=== PATIENT | female | born 1930 | race Caucasian/White ===

== ENCOUNTER 2016-09-05 13:38 | Inpatient (IN) | payer OTHER, MEDICARE ==
[~2016-09-05] VITALS: Ht 157.5 cm; Wt 68.3 kg
[~2016-09-05 13:38] MED LIST: ATENOLOL100 M1 PO; Bactrim,Septra DS 80 PO; CRESTOR5 MG PO; GLUCOPHAGE500 MG PO; Hyzaar 100-25 PO; LUMIGAN2.5 M1 OP; Levothroid,Synthroid PO; NORVASC5 MG PO; Questran PO; Tenormin PO; ZANTAC150 MG PO; ZOCOR20 MG PO
[2016-09-05 14:13] LABS: HEMATOCRIT 44.6 % (36.0-46.0); MCHC 34.3 G/DL (30.0-36.0); MCV 84.6 FL (83-99); MEAN PLAT.VOLUME 9.6 uM^3 (9.5-12.4); PLATELET COUNT 266 K/uL (156-360); RBC DIS.WIDTH-CV 12.2 % (11.8-14.6); RBC DIS.WIDTH-SD 36.8 % (39-53); RED BLOOD COUNT 5.27 M/uL (3.80-5.20); WHITE BLOOD COUNT 8.9 K/uL (4.1-10.2)
[2016-09-05 14:24] LABS: CHLORIDE 103 mEq/L (99-109); POTASSIUM 4.5 mEq/L (3.7-5.4); SODIUM 136 mEq/L (136-147)
[2016-09-05 14:26] LABS: GLUCOSE 101 mg/dL (70-99)
[2016-09-05 14:27] LABS: ANION GAP 13 MEQ/L (2-14)
[2016-09-05 14:30] LABS: GFR ESTIMATE (CALCULATED) > 59 mL/min/
[2016-09-05 14:31] LABS: UREA NITROGEN (BUN) 16 mg/dL (9-23)
[2016-09-05 14:35] LABS: TROP-I INTERPRETATION NEGATIVE; TROPONIN-I < 0.01 ng/mL (0.0-0.30)
[2016-09-05] MEDS ORDERED: SYNTHROID50 MCG PO (16:48)
[2016-09-05] MEDS ORDERED: LOSARTAN POTAS100 MG PO (16:49)
[2016-09-05] MEDS ORDERED: GLIMEPIRIDE4 MG PO (16:49)
[2016-09-05] MEDS ORDERED: TENORMIN100 MG PO (16:49)
[2016-09-05] MEDS ORDERED: PROMETHAZINE-C120 ML PO (16:49)
[2016-09-05] MEDS ORDERED: PRAVASTATIN SOD40 MG PO (16:49)
[2016-09-05] MEDS ORDERED: TRUSOPT5 ML LEFT EYE (16:50)
[2016-09-05] MEDS ORDERED: [UNRECOGNIZED DRUG - OTHER] LEFT EYE (16:51)
[2016-09-05] MEDS ORDERED: COSOPT EYE DROPS5 ML LEFT EYE (16:52)
[2016-09-05] MEDS ORDERED: TYLENOL EXTRA500 MG PO (16:52)
[2016-09-05 17:39] LABS: TROP-I INTERPRETATION NEGATIVE; TROPONIN-I < 0.01 ng/mL (0.0-0.30)
[2016-09-05 17:48] LABS: HDL CHOLESTEROL 51 MG/DL (Desirable>=50); LDL CHOLESTEROL 46 mg/dL (Desirable<100); NON-HDL CHOLESTEROL 69 mg/dL (Desirable<160); TOTAL CHOLESTEROL 120 mg/dL (Desirable<200); TRIGLYCERIDES 115 MG/DL (Normal: <150)
[2016-09-05 19:44] VITALS: BP 150/72
[2016-09-05 19:49] LABS: Estimated Average Glucose 157 mg/dL (70-123); HEMOGLOBIN A1c (GLYCOHEMOGLOB) 7.1 % HGB (Below 5.7)
[2016-09-05 22:45] VITALS: BP 142/71
[2016-09-06 03:40] VITALS: BP 166/89
[2016-09-06 07:05] LABS: HEMATOCRIT 43.1 % (36.0-46.0); MCH 29.5 PG (29.0-34.0); MCHC 34.8 G/DL (30.0-36.0); MCV 84.7 FL (83-99); MEAN PLAT.VOLUME 9.9 uM^3 (9.5-12.4); PLATELET COUNT 233 K/uL (156-360); RBC DIS.WIDTH-CV 12.4 % (11.8-14.6); RED BLOOD COUNT 5.09 M/uL (3.80-5.20); WHITE BLOOD COUNT 7.9 K/uL (4.1-10.2)
[2016-09-06 07:34] LABS: ALKALINE PHOSPHATASE 59 IU/L (3-129); ANION GAP 14 MEQ/L (2-14); CHLORIDE 100 MEQ/L (99-109); GFR ESTIMATE (CALCULATED) > 59 mL/min/; GLUCOSE 140 mg/dL (70-99); POTASSIUM 4.1 MEQ/L (3.7-5.4); SAMPLE HEMOLYSIS CHECK 0; SAMPLE ICTERIC CHECK 0; SAMPLE LIPEMIA CHECK 0; SODIUM 135 MEQ/L (136-147); TOTAL BILIRUBIN 1.6 MG/DL (0.0-1.0); UREA NITROGEN (BUN) 16 mg/dL (9-23)
[2016-09-06 07:55] VITALS: BP 144/77
[2016-09-06 11:55] VITALS: BP 127/71
[2016-09-06] MEDS ORDERED: ZIOPTAN 0.00151 EACH LEFT EYE (15:37)
[2016-09-06 16:03] VITALS: BP 175/89
[2016-09-06 19:32] VITALS: BP 154/82
[2016-09-07 00:03] VITALS: BP 156/72
[2016-09-07 03:42] VITALS: BP 166/92
[2016-09-07 08:36] VITALS: BP 157/75
[2016-09-07 11:13] VITALS: BP 152/73
[2016-09-07 15:29] VITALS: BP 143/67
[2016-09-07 20:00] VITALS: BP 171/81
[2016-09-08] VITALS (7 sets, daily range): BP systolic 110–152; BP diastolic 65–78
[2016-09-08 00:49] LABS: MCH 29.4 PG (29.0-34.0); MCHC 36.4 G/DL (30.0-36.0); MCV 80.9 FL (83-99); MEAN PLAT.VOLUME 9.5 uM^3 (9.5-12.4); PLATELET COUNT 292 K/uL (156-360); RBC DIS.WIDTH-SD 34.9 % (39-53); RED BLOOD COUNT 5.44 M/uL (3.80-5.20); WHITE BLOOD COUNT 10.5 K/uL (4.1-10.2)
[2016-09-08 00:50] LABS: CHLORIDE 99 mEq/L (99-109); POTASSIUM 3.8 mEq/L (3.7-5.4); SODIUM 130 mEq/L (136-147)
[2016-09-08 00:52] LABS: GLUCOSE 179 mg/dL (70-99)
[2016-09-08 00:53] LABS: ANION GAP 11 MEQ/L (2-14)
[2016-09-08 00:56] LABS: GFR ESTIMATE (CALCULATED) > 59 mL/min/
[2016-09-08 00:57] LABS: UREA NITROGEN (BUN) 14 mg/dL (9-23)
[2016-09-09 06:11] LABS: HEMATOCRIT 46.3 % (36.0-46.0); MCH 29.8 PG (29.0-34.0); MCHC 35.4 G/DL (30.0-36.0); MCV 84.2 FL (83-99); MEAN PLAT.VOLUME 9.9 uM^3 (9.5-12.4); PLATELET COUNT 268 K/uL (156-360); RBC DIS.WIDTH-CV 12.2 % (11.8-14.6); RBC DIS.WIDTH-SD 37.2 % (39-53); WHITE BLOOD COUNT 9.7 K/uL (4.1-10.2)
[2016-09-09 07:31] VITALS: BP 149/72
[2016-09-09 09:38] LABS: ANION GAP 13 MEQ/L (2-14); CHLORIDE 101 MEQ/L (99-109); GFR ESTIMATE (CALCULATED) > 59 mL/min/; GLUCOSE 175 mg/dL (70-99); POTASSIUM 4.1 MEQ/L (3.7-5.4); SAMPLE HEMOLYSIS CHECK 0; SAMPLE ICTERIC CHECK 0; SAMPLE LIPEMIA CHECK 0; SODIUM 135 MEQ/L (136-147); UREA NITROGEN (BUN) 17 mg/dL (9-23)
[2016-09-09 11:16] VITALS: BP 120/65
[2016-09-09] MEDS ORDERED: CLOPIDOGREL75 MG PO (13:32)
[2016-09-09] MEDS ORDERED: ASPIR-LOW81 MG PO (13:32)
[2016-09-09] MEDS ORDERED: AMLODIPINE BES2.5 MG PO (13:32)
[2016-09-09 16:28] VITALS: BP 107/64
== END 2016-09-09 17:01 | DRG 64 ==
LOC: EME 13:38 → EDOF 16:16 → 5WEST 19:19 → 5SOUTH 21:18 → 5WEST 21:18 → 5SOUTH 22:36
PROVIDERS: Emergency Medicine; Family Medicine; Hospitalist
DX: I63.9 Cerebral infarction, unspecified (principal); G93.40 Encephalopathy, unspecified; E22.2 Syndrome of inappropriate secretion of antidiuretic hormone; E11.9 Type 2 diabetes mellitus without complications; I16.0 Hypertensive urgency; I10 Essential (primary) hypertension; E78.5 Hyperlipidemia, unspecified; E78.00 Pure hypercholesterolemia, unspecified; Z79.84 Long term (current) use of oral hypoglycemic drugs; Z85.820 Personal history of malignant melanoma of skin
CPT/HCPCS: 70450; 70496; 70498; 70544; 70549; 70551; 71020; 80048; 80053; 80061; 82948; 83036; 84484; 85027; 92523 GN; 93005; 93306; 93880; 97530 GP; 99281; 99285; J0360; J1650; J1815; J2060; J2405

== ENCOUNTER 2016-09-30 23:31 | Emergency (ER) | payer OTHER, MEDICARE ==
[~2016-09-30] VITALS: Ht 160 cm; Wt 68.2 kg
[~2016-09-30 23:31] MED LIST changes: +AMLODIPINE BES2.5 MG PO; +ASPIR-LOW81 MG PO; +CLOPIDOGREL75 MG PO; +COSOPT EYE DROPS5 ML LEFT EYE; +GLIMEPIRIDE4 MG PO; +LOSARTAN POTAS100 MG PO; +PRAVASTATIN SOD40 MG PO; +PROMETHAZINE-C120 ML PO; +SYNTHROID50 MCG PO; +TENORMIN100 MG PO; +TRUSOPT5 ML LEFT EYE; +TYLENOL EXTRA500 MG PO; +ZIOPTAN 0.00151 EACH LEFT EYE; +[UNRECOGNIZED DRUG - OTHER] LEFT EYE
[2016-10-01 00:40] LABS: CHLORIDE 103 mEq/L (99-109); POTASSIUM 5.3 mEq/L (3.7-5.4); SODIUM 133 mEq/L (136-147)
[2016-10-01 00:42] LABS: GLUCOSE 201 mg/dL (70-99)
[2016-10-01 00:44] LABS: ANION GAP 9 MEQ/L (2-14); TOTAL BILIRUBIN 0.7 mg/dL (0.0-1.0)
[2016-10-01 00:44] LABS: ADD MIUA? YES; BILIRUBIN NEGATIVE; BLOOD LARGE; GLUCOSE (STRIP) NEGATIVE; KETONES 5; LEUKOCYTES MODERATE; NITRITE NEGATIVE; PROTEIN (STRIP) 100; SPECIFIC GRAVITY 1.017 (1.000-1.030); UROBILINOGEN 0.2 MG/DL (0.2-1.0)
[2016-10-01 00:46] LABS: COLOR YELLOW ((YELLOW))
[2016-10-01 00:46] LABS: ALKALINE PHOSPHATASE 73 IU/L (3-129); GFR ESTIMATE (CALCULATED) > 59 mL/min/
[2016-10-01 00:47] LABS: UREA NITROGEN (BUN) 31 mg/dL (9-23)
[2016-10-01 00:49] LABS: LIPASE 78 U/L (1.0-51.0)
[2016-10-01 00:52] LABS: HEMATOCRIT 40.1 % (36.0-46.0); MCH 29.6 PG (29.0-34.0); MCHC 35.9 G/DL (30.0-36.0); MCV 82.5 FL (83-99); MEAN PLAT.VOLUME 8.4 uM^3 (9.5-12.4); PLATELET COUNT 310 K/uL (156-360); RBC DIS.WIDTH-CV 12.1 % (11.8-14.6); RBC DIS.WIDTH-SD 35.9 % (39-53); RED BLOOD COUNT 4.86 M/uL (3.80-5.20); WHITE BLOOD COUNT 7.1 K/uL (4.1-10.2)
[2016-10-01 00:58] LABS: BACTERIA NONE SEEN /HPF; EPITHELIAL CELLS NONE SEEN /HPF; MUCUS NONE SEEN /LPF; UCUL ADDED? NO; WHITE BLOOD CELLS 15-20 /HPF (0-5); WHITE BLOOD CELLS CLUMP FEW /HPF (0-5)
[2016-10-01 01:20] LABS: TROP-I INTERPRETATION NEGATIVE; TROPONIN-I < 0.01 ng/mL (0.0-0.30)
[2016-10-01] MEDS ORDERED: CIPRO500 MG PO (03:06)
[2016-10-01 04:33] VITALS: BP 132/70
== END 2016-10-01 04:44 ==
LOC: EME → EDBD 23:31 → EME 23:31
PROVIDERS: Emergency Medicine
DX: N30.01 Acute cystitis with hematuria (principal); E86.0 Dehydration; E87.1 Hypo-osmolality and hyponatremia; I69.351 Hemiplegia and hemiparesis following cerebral infarction affecting right dominant side; E78.5 Hyperlipidemia, unspecified; W06.XXXA Fall from bed, initial encounter
CPT/HCPCS: 70450; 71010; 72170; 72192; 80053; 81003; 83690; 84484; 85027; 87086; 93005; 99281; 99285; J7030

== ENCOUNTER 2017-02-17 11:55 | Inpatient (IN) | payer OTHER, MEDICARE, BC ==
[~2017-02-17] VITALS: Ht 157.5 cm; Wt 61.8 kg
[~2017-02-17 11:55] MED LIST changes: +CIPRO500 MG PO
[2017-02-17 13:53] LABS: ADD MIUA? YES; BILIRUBIN NEGATIVE; BLOOD SMALL; COLOR YELLOW ((YELLOW)); GLUCOSE (STRIP) NEGATIVE; KETONES NEGATIVE; LEUKOCYTES LARGE; NITRITE POSITIVE; PROTEIN (STRIP) 30; SPECIFIC GRAVITY 1.014 (1.000-1.030); UROBILINOGEN 0.2 MG/DL (0.2-1.0)
[2017-02-17 14:22] LABS: BACTERIA 3+ /HPF; CASTS NONE SEEN /LPF; CRYSTALS NONE SEEN; EPITHELIAL CELLS RARE /HPF; MUCUS NONE SEEN /LPF; RED BLOOD CELLS 0-5 /HPF (0-5); WHITE BLOOD CELLS 30-40 /HPF (0-5)
[2017-02-17 15:10] LABS: CHLORIDE 107 mEq/L (99-109); POTASSIUM 4.2 mEq/L (3.7-5.4); SODIUM 137 mEq/L (136-147)
[2017-02-17 15:14] LABS: ANION GAP 10 MEQ/L (2-14)
[2017-02-17 15:15] LABS: TOTAL BILIRUBIN 0.6 mg/dL (0.0-1.0)
[2017-02-17 15:16] LABS: ALKALINE PHOSPHATASE 76 IU/L (3-129); GFR ESTIMATE (CALCULATED) > 59 mL/min/; WHITE BLOOD COUNT ND K/uL (4.1-10.2)
[2017-02-17 15:17] LABS: RED BLOOD COUNT ND M/uL (3.80-5.20); UREA NITROGEN (BUN) 17 mg/dL (9-23)
[2017-02-17 15:18] LABS: HEMATOCRIT ND % (36.0-46.0); MCH ND PG (29.0-34.0); MCHC ND G/DL (30.0-36.0); MCV ND FL (83-99)
[2017-02-17 15:19] LABS: IMM.PLATELET FRACTION ND (1-7); MEAN PLAT.VOLUME ND uM^3 (9.5-12.4); PLATELET COUNT ND K/uL (156-360); RBC DIS.WIDTH-CV ND % (11.8-14.6); RBC DIS.WIDTH-SD ND % (39-53)
[2017-02-17 15:20] LABS: EOSINOPHIL (%) ND % (0-5); LIPASE 3 U/L (1.0-51.0); MONOCYTE (%) ND % (3-12); NEUTROPHIL (%) ND % (45-76)
[2017-02-17 15:21] LABS: IMMATURE GRANULOCYTE (%) ND % (0.0-0.7); LYMPHOCYTE COUNT ND K/uL (1.0-2.8); MONOCYTE COUNT ND K/uL (0-0.8); NEUTROPHIL COUNT ND K/uL (1.8-6.4)
[2017-02-17 15:22] LABS: BASOPHIL COUNT ND K/uL (0-0.1); EOSINOPHIL COUNT ND K/uL (0-0.3); IMMATURE GRANULOCYTE COUNT ND K/uL; NRBC (%) ND /100 WBC (0-0); NRBC COUNT ND K/uL (0-0)
[2017-02-17 15:23] LABS: ACANTHOCYTES ND; ANISOCYTOSIS ND; ATYPICAL LYMPHOCYTE ND %; BAND NEUTROPHILS ND % (0-8.0); BASOPHILS ND %; BURR CELLS ND; EOSINOPHILS ND % (0-5.0); HYPOCHROMASIA ND; LYMPHOCYTES ND % (15.0-45.0); MACROCYTES ND; METAMYELOCYTES ND %; MICROCYTOSIS ND; MYELOCYTES ND %; NUCLEATED RBC'S ND; OVALOCYTES ND; PLATELET CLUMPS ND; POIKILOCYTOSIS ND; POLYCHROMASIA ND; ROULEAUX ND; SCHISTOCYTES ND; SEG.NEUTROPHILS ND % (46.0-76.0); SICKLE CELLS ND; SPHEROCYTES ND; TARGET CELLS ND; TOTAL CELLS COUNTED ND; TOX.VACUOLIZATION ND; TOXIC GRANULATION ND
[2017-02-17 15:24] LABS: ABS NEUTROPHIL COUNT ND; EOSINOPHIL ABS CT ND; GIANT PLATELETS ND; HELMET CELLS ND; HYPERSEGMENTATION ND; INSTRUMENT ABS NEUTROPHIL CT ND K/uL; LARGE PLATELETS ND; MEGAKARYOCYTE ND; PLAT.SUFFICIENCY ND; SMUDGE CELLS ND; STOMATOCYTES ND; TEAR DROP CELLS ND
[2017-02-17 15:35] LABS: GLUCOSE 90 mg/dL (70-99)
[2017-02-17 16:24] LABS: EOSINOPHIL (%) 0.7 % (0-5); EOSINOPHIL COUNT 0.1 K/uL (0-0.3); HEMATOCRIT 35.1 % (36.0-46.0); IMMATURE GRANULOCYTE (%) 0.3 % (0.0-0.7); INSTRUMENT ABS NEUTROPHIL CT 8.5 K/uL; LYMPHOCYTE COUNT 1.6 K/uL (1.0-2.8); MCH 27.9 PG (29.0-34.0); MCHC 32.8 G/DL (30.0-36.0); MCV 85.2 FL (83-99); MEAN PLAT.VOLUME 9.4 uM^3 (9.5-12.4); MONOCYTE (%) 11.6 % (3-12); MONOCYTE COUNT 1.4 K/uL (0-0.8); NEUTROPHIL COUNT 8.5 K/uL (1.8-6.4); PLATELET COUNT 217 K/uL (156-360); RED BLOOD COUNT 4.12 M/uL (3.80-5.20); WHITE BLOOD COUNT 11.7 K/uL (4.1-10.2)
[2017-02-17] MEDS ORDERED: NORVASC2.5 MG PO (17:49)
[2017-02-17] MEDS ORDERED: GLIMEPIRIDE2 MG PO (17:52)
[2017-02-17] MEDS ORDERED: IMODIUM A-D2 M2 PO (17:53)
[2017-02-17] MEDS ORDERED: LANTUS 10100 UNITS/ SC ×2 (17:54)
[2017-02-17] MEDS ORDERED: MELATONIN3 MG PO (17:55)
[2017-02-17] MEDS ORDERED: GABAPENTIN300 MG PO (17:56)
[2017-02-17] MEDS ORDERED: BUPROPION XL150 MG PO (17:58)
[2017-02-17] MEDS ORDERED: GABAPENTIN100 MG PO (18:00)
[2017-02-17] MEDS ORDERED: CLOTRIMAZOLE15 GM TP (18:00)
[2017-02-17] MEDS ORDERED: NOVOLOG 10100 UNITS/ SC (18:01)
[2017-02-17] MEDS ORDERED: K-DUR20 MEQ PO (18:01)
[2017-02-17] MEDS ORDERED: DICYCLOMINE HCL20 MG PO (18:02)
[2017-02-17] MEDS ORDERED: TYLENOL REGULA325 MG PO (18:02)
[2017-02-17] MEDS ORDERED: ALUM-MAG HYDRO360 ML PO (18:03)
[2017-02-17] MEDS ORDERED: PROMETHAZINE HC25 M1 PO (18:04)
[2017-02-17] MEDS ORDERED: TRAMADOL HCL50 MG PO (18:04)
[2017-02-17 20:13] VITALS: BP 103/61
[2017-02-18 00:02] VITALS: BP 125/65
[2017-02-18 00:42] LABS: POINT-OF-CARE METER ID UU14188625
[2017-02-18 03:22] VITALS: BP 124/57
[2017-02-18 06:06] LABS: HEMATOCRIT 36.1 % (36.0-46.0); MCV 84.9 FL (83-99); MEAN PLAT.VOLUME 9.1 uM^3 (9.5-12.4); PLATELET COUNT 208 K/uL (156-360); RBC DIS.WIDTH-CV 11.9 % (11.8-14.6); RBC DIS.WIDTH-SD 36.8 % (39-53); RED BLOOD COUNT 4.25 M/uL (3.80-5.20); WHITE BLOOD COUNT 8.5 K/uL (4.1-10.2)
[2017-02-18 06:24] LABS: ANION GAP 11 MEQ/L (2-14); CHLORIDE 104 MEQ/L (99-109); GFR ESTIMATE (CALCULATED) > 59 mL/min/; POTASSIUM 4.1 MEQ/L (3.7-5.4); SAMPLE HEMOLYSIS CHECK 0; SAMPLE ICTERIC CHECK 0; SAMPLE LIPEMIA CHECK 0; SODIUM 136 MEQ/L (136-147); UREA NITROGEN (BUN) 10 mg/dL (9-23)
[2017-02-18 06:26] LABS: GLUCOSE 140 mg/dL (70-99)
[2017-02-18 07:35] VITALS: BP 126/56
[2017-02-18 11:15] VITALS: BP 142/71
[2017-02-18 15:12] VITALS: BP 134/77
[2017-02-18 20:01] VITALS: BP 127/62
[2017-02-18 21:05] LABS: POINT-OF-CARE METER ID UU14188625
[2017-02-19 00:13] VITALS: BP 126/67
[2017-02-19 04:20] VITALS: BP 143/84
[2017-02-19 05:51] LABS: ANION GAP 11 MEQ/L (2-14); CHLORIDE 106 MEQ/L (99-109); POTASSIUM 3.4 MEQ/L (3.7-5.4); SAMPLE HEMOLYSIS CHECK 0; SAMPLE ICTERIC CHECK 0; SAMPLE LIPEMIA CHECK 0; SODIUM 138 MEQ/L (136-147); TOTAL BILIRUBIN 0.3 MG/DL (0.0-1.0)
[2017-02-19 05:56] LABS: ALKALINE PHOSPHATASE 67 IU/L (3-129); GFR ESTIMATE (CALCULATED) > 59 mL/min/; GLUCOSE 112 mg/dL (70-99); UREA NITROGEN (BUN) 5 mg/dL (9-23)
[2017-02-19 06:06] LABS: EOSINOPHIL (%) 3.5 % (0-5); EOSINOPHIL COUNT 0.2 K/uL (0-0.3); HEMATOCRIT 46.9 % (36.0-46.0); IMMATURE GRANULOCYTE (%) 0.4 % (0.0-0.7); INSTRUMENT ABS NEUTROPHIL CT 2.9 K/uL; LYMPHOCYTE COUNT 1.1 K/uL (1.0-2.8); MCH 28.1 PG (29.0-34.0); MCHC 34.5 G/DL (30.0-36.0); MCV 81.4 FL (83-99); MEAN PLAT.VOLUME 9.2 uM^3 (9.5-12.4); MONOCYTE (%) 17.6 % (3-12); MONOCYTE COUNT 0.9 K/uL (0-0.8); NEUTROPHIL (%) 56.2 % (45-76); NEUTROPHIL COUNT 2.9 K/uL (1.8-6.4); PLATELET COUNT 147 K/uL (156-360); RBC DIS.WIDTH-CV 11.7 % (11.8-14.6); RBC DIS.WIDTH-SD 34.7 % (39-53); RED BLOOD COUNT 5.76 M/uL (3.80-5.20); WHITE BLOOD COUNT 5.2 K/uL (4.1-10.2)
[2017-02-19 07:25] VITALS: BP 155/74
[2017-02-19 07:49] LABS: POINT-OF-CARE METER ID UU13113717
[2017-02-19 11:11] VITALS: BP 149/69
[2017-02-19 11:39] LABS: POINT-OF-CARE METER ID UU13113717
[2017-02-19 12:05] LABS: Estimated Average Glucose 160 mg/dL (70-123); HEMOGLOBIN A1c (GLYCOHEMOGLOB) 7.2 % HGB (Below 5.7)
[2017-02-19 15:07] VITALS: BP 110/79
[2017-02-19 16:09] LABS: POINT-OF-CARE METER ID UU13113717
[2017-02-19 19:28] VITALS: BP 135/69
[2017-02-19 21:05] LABS: POINT-OF-CARE METER ID UU13113717
[2017-02-20 00:12] VITALS: BP 150/80
[2017-02-20 03:51] VITALS: BP 146/70
[2017-02-20 07:31] VITALS: BP 139/87
[2017-02-20 11:22] VITALS: BP 133/83
[2017-02-20] MEDS ORDERED: KEFLEX500 MG PO (12:20)
[2017-02-20] MEDS ORDERED: ATENOLOL25 MG PO (12:24)
== END 2017-02-20 15:20 | DRG 689 ==
LOC: EME → EDBD 11:55 → EME 11:55 → 5SOUTH 18:15 → EDOF 18:15 → 5SOUTH 19:58
PROVIDERS: Hospitalist; Physician Assistant
DX: N10 Acute pyelonephritis (principal); B96.1 Klebsiella pneumoniae [K. pneumoniae] as the cause of diseases classified elsewhere; B96.20 Unspecified Escherichia coli [E. coli] as the cause of diseases classified elsewhere; G93.41 Metabolic encephalopathy; K52.9 Noninfective gastroenteritis and colitis, unspecified; E11.9 Type 2 diabetes mellitus without complications; K59.00 Constipation, unspecified; D64.9 Anemia, unspecified; I69.351 Hemiplegia and hemiparesis following cerebral infarction affecting right dominant side; I69.322 Dysarthria following cerebral infarction; L89.159 Pressure ulcer of sacral region, unspecified stage; I10 Essential (primary) hypertension; G43.909 Migraine, unspecified, not intractable, without status migrainosus; I25.10 Atherosclerotic heart disease of native coronary artery without angina pectoris; E78.5 Hyperlipidemia, unspecified; K21.9 Gastro-esophageal reflux disease without esophagitis; E03.9 Hypothyroidism, unspecified; F03.90 Unspecified dementia, unspecified severity, without behavioral disturbance, psychotic disturbance, mood disturbance, and anxiety; F32.9 Major depressive disorder, single episode, unspecified; Z79.4 Long term (current) use of insulin; Z79.82 Long term (current) use of aspirin; Z79.84 Long term (current) use of oral hypoglycemic drugs; Z80.0 Family history of malignant neoplasm of digestive organs; Z83.3 Family history of diabetes mellitus; Z85.820 Personal history of malignant melanoma of skin
CPT/HCPCS: 36415; 70450; 71260; 74177; 80048; 80053; 81003; 82272; 82948; 83036; 83605; 83690; 85025; 85025 91; 85027; 87040; 87077; 87086; 87186; 87493; 93971; J0696; J1644; J1815; J2405; J7030; J7050

== ENCOUNTER 2017-03-27 12:22 | Emergency (ER) | payer OTHER, MEDICARE ==
[~2017-03-27] VITALS: Ht 160 cm; Wt 56.1 kg
[~2017-03-27 12:22] MED LIST changes: +ALUM-MAG HYDRO360 ML PO; +ATENOLOL25 MG PO; +BUPROPION XL150 MG PO; +CLOTRIMAZOLE15 GM TP; +DICYCLOMINE HCL20 MG PO; +GABAPENTIN100 MG PO; +GABAPENTIN300 MG PO; +GLIMEPIRIDE2 MG PO; +IMODIUM A-D2 M2 PO; +K-DUR20 MEQ PO; +KEFLEX500 MG PO; +LANTUS 10100 UNITS/ SC; +MELATONIN3 MG PO; +NORVASC2.5 MG PO; +NOVOLOG 10100 UNITS/ SC; +PROMETHAZINE HC25 M1 PO; +TRAMADOL HCL50 MG PO; +TYLENOL REGULA325 MG PO
[2017-03-27 13:36] LABS: EOSINOPHIL (%) 1.1 % (0-5); EOSINOPHIL COUNT 0.1 K/uL (0-0.3); HEMATOCRIT 34.3 % (36.0-46.0); IMMATURE GRANULOCYTE (%) 0.5 % (0.0-0.7); IMMATURE GRANULOCYTE COUNT 0.1 K/uL; INSTRUMENT ABS NEUTROPHIL CT 7.8 K/uL; LYMPHOCYTE COUNT 1.1 K/uL (1.0-2.8); MCH 27.4 PG (29.0-34.0); MCHC 32.9 G/DL (30.0-36.0); MCV 83.1 FL (83-99); MEAN PLAT.VOLUME 8.9 uM^3 (9.5-12.4); MONOCYTE (%) 11.8 % (3-12); MONOCYTE COUNT 1.2 K/uL (0-0.8); NEUTROPHIL (%) 75.7 % (45-76); NEUTROPHIL COUNT 7.8 K/uL (1.8-6.4); PLATELET COUNT 283 K/uL (156-360); RBC DIS.WIDTH-CV 13.7 % (11.8-14.6); RED BLOOD COUNT 4.13 M/uL (3.80-5.20); WHITE BLOOD COUNT 10.3 K/uL (4.1-10.2)
[2017-03-27 13:41] LABS: INTER. NORMALIZED RATIO 1.3; PROTHROMBIN TIME 14.4 SEC (10.2-12.9)
[2017-03-27 13:44] LABS: PTT 27.6 SEC (25-37)
[2017-03-27 13:45] LABS: CHLORIDE 110 mEq/L (99-109); SODIUM 138 mEq/L (136-147)
[2017-03-27 13:47] LABS: GLUCOSE 184 mg/dL (70-99)
[2017-03-27 13:49] LABS: ANION GAP 10 MEQ/L (2-14); TOTAL BILIRUBIN 0.4 mg/dL (0.0-1.0)
[2017-03-27 13:51] LABS: ALKALINE PHOSPHATASE 108 IU/L (3-129); GFR ESTIMATE (CALCULATED) > 59 mL/min/
[2017-03-27 13:52] LABS: UREA NITROGEN (BUN) 36 mg/dL (9-23)
[2017-03-27 13:54] LABS: LIPASE 29 U/L (1.0-51.0)
[2017-03-27 13:55] LABS: POTASSIUM 3.8 mEq/L (3.7-5.4)
[2017-03-27 14:03] LABS: TROP-I INTERPRETATION NEGATIVE; TROPONIN-I < 0.01 ng/mL (0.0-0.30)
[2017-03-27 14:42] LABS: ADD MIUA? YES; BILIRUBIN NEGATIVE; BLOOD MODERATE; COLOR YELLOW ((YELLOW)); GLUCOSE (STRIP) 50; KETONES NEGATIVE; LEUKOCYTES LARGE; NITRITE NEGATIVE; PROTEIN (STRIP) 30; SPECIFIC GRAVITY 1.013 (1.000-1.030); UROBILINOGEN 0.2 MG/DL (0.2-1.0)
[2017-03-27 14:56] LABS: EPITHELIAL CELLS NONE SEEN /HPF; MUCUS NONE SEEN /LPF; RED BLOOD CELLS 15-20 /HPF (0-5); WHITE BLOOD CELLS 20-30 /HPF (0-5)
[2017-03-27 14:57] LABS: BACTERIA 1+ /HPF; UCUL ADDED? YES
[2017-03-27 18:52] VITALS: BP 93/51
== END 2017-03-27 18:55 ==
LOC: EME 12:22
PROVIDERS: Emergency Medicine
DX: N39.0 Urinary tract infection, site not specified (principal); R41.82 Altered mental status, unspecified; E78.5 Hyperlipidemia, unspecified; E03.9 Hypothyroidism, unspecified; F03.90 Unspecified dementia, unspecified severity, without behavioral disturbance, psychotic disturbance, mood disturbance, and anxiety; Z86.73 Personal history of transient ischemic attack (TIA), and cerebral infarction without residual deficits; K21.9 Gastro-esophageal reflux disease without esophagitis; Z88.8 Allergy status to other drugs, medicaments and biological substances; Z88.6 Allergy status to analgesic agent
CPT/HCPCS: 70450; 71010; 80053; 81003; 83605; 83690; 84484; 85025; 85610; 85730; 87040; 87086; 87106; 99281; 99285; J0696; J7050